=== PATIENT | female | born 1955 | race African-American/Black ===

== ENCOUNTER 2024-02-14 12:10 | Emergency (ER) | payer BC ==
[~2024-02-14] VITALS: Ht 162.6 cm; Wt 80.0 kg
[2024-02-14 12:12] VITALS: O2SAT 97
[2024-02-14 16:24] LABS: CHLORIDE 100 mEq/L (98-107); SODIUM 137 mEq/L (136-145)
[2024-02-14 16:25] LABS: CARBON DIOXIDE 31 mEq/L (21-32)
[2024-02-14 16:30] LABS: CREATININE 0.8 mg/dL (0.6-1.0); GLUCOSE 128 mg/dL (70-105); TROPONIN I HIGH SENSITIVITY 4 ng/L (3.0-34); UREA NITROGEN BLOOD 9 mg/dL (9-23)
[2024-02-14] MEDS ORDERED: METHOCARBAMOL 750MG TABLET PO SCH ×2 (17:30)
[2024-02-14 17:46] LABS: BASOPHILS % 0.3 % (0.0-2.0); EOSINOPHILS % 0.7 % (0.0-5.0); HEMATOCRIT. 39.5 % (36.0-48.0); HEMOGLOBIN. 13.1 g/dL (12.0-16.0); LYMPHOCYTES % 36.3 % (20.0-50.0); MEAN CORPUSCULAR HGB CONC 33.3 g/dL (31.0-37.0); MEAN CORPUSCULAR VOLUME 96.1 fL (81.0-99.0); MEAN PLATELET VOLUME 9.6 fl (7.4-10.4); MONOCYTES % 6.3 % (2.0-8.0); NEUTROPHILS % 56.4 % (40.0-76.0); PLATELET 264 x1000/uL (130-400); RED BLOOD CELL COUNT 4.11 mill/uL (4.2-5.4); RED CELL DISTRIBUTION WIDTH 13.8 % (11.6-14.6)
[2024-02-14] MEDS: IBUPROFEN 400MG TABLET PO ONE (18:10)
[2024-02-14] MEDS: METHOCARBAMOL 500MG TABLET PO NR (18:11)
[2024-02-14] MEDS: HYDROCODONE/ACETAMINOPHEN 5/325MG TABLET PO ONE (18:11)
[2024-02-14] MEDS: LIDOCAINE 5% PATCH TOP SCH (18:18)
[2024-02-14] MEDS ORDERED: IBUP-2028 MT (18:59)
[2024-02-14] MEDS ORDERED: METH-653 MT (18:59)
[2024-02-14] MEDS ORDERED: HYDR-4001 MT (18:59)
[2024-02-14] MEDS ORDERED: LIDO700A15 TP (18:59)
[2024-02-14 19:13] VITALS: BP 133/59; PULSE 72; RESP 18; TEMP 37.16964; O2SAT 97
[2024-02-14 19:17] LABS: ALANINE AMINOTRANSFERASE 19 IU/L (10-49); ALBUMIN 4.8 g/dL (3.2-4.8); ASPARTATE AMINOTRANSFERASE 21 IU/L (<34); BILIRUBIN DIRECT 0.3 mg/dL (<=3.0); BILIRUBIN TOTAL 1.4 mg/dL (0.1-1.0); PROTEIN TOTAL 7.2 g/dL (6.0-8.3)
== END 2024-02-14 19:37 | disposition home or self-care (01) ==
LOC: ER 12:10
DX: R10.84 Generalized abdominal pain (principal); E11.9 Type 2 diabetes mellitus without complications; Z88.0 Allergy status to penicillin
CPT/HCPCS: 36415; 71045; 74176; 80048; 80076; 83880; 84484; 85025; 93005; 93970; 99285